=== PATIENT | female | born 1980 | race Caucasian/White ===

== ENCOUNTER 2023-09-23 19:28 | Emergency (ER) | payer BC, SELFPAY ==
[2023-09-23 19:38] VITALS: BP 111/63; PULSE 112; RESP 20; TEMP 37.7; O2SAT 96
[2023-09-24 01:49] VITALS: BP 98/58; PULSE 98; RESP 17; TEMP 37; O2SAT 99
[2023-09-24 01:50] VITALS: O2SAT 98
[2023-09-24 02:34] LABS: Influenza A QL RT-PCR Positive (Negative); Influenza B QL RT-PCR Negative (Negative); RSV RNA, RT-PCR Negative (Negative); SARS-CoV-2 RNA PCR Negative (Negative)
--- NOTE | 2023-09-24 03:02 | ED.URI ---
HPI - URI/Sore Throat General Chief Complaint: Upper Respiratory Infection Stated Complaint: sob, n/v,fever Time Seen by Provider: 09/24/23 02:24 Source: patient Limitations: no limitations History of Present Illness HPI Narrative: Patient is a 43-year-old female presenting to the emergency department complaining of a couple days of congestion, rhinorrhea, fever when she is unsure as to how high she has not been taking temperature in addition to a cough that is nonproductive and some generalized body aches. Patient is unsure she has had any sick contacts. Patient denies chest pain, difficulty breathing, urinary discomfort, diarrhea, vomiting, ear pain. Patient has not tried any medications for symptoms. Related Data Allergies Allergy/AdvReac Type Severity Reaction Status Date / Time latex Allergy Rash Verified 09/23/23 19:46 Review of Systems Review of Systems: A 10 system review of systems was completed on the patient and is negative except for what is stated in the HPI. Nursing and ancillary documentation was reviewed. PMFSH Comments At time of signature, I have reviewed and agree with nursing past medical, surgical, social and family history unless otherwise noted. Please see the nursing chart for further information. There is no relevant family history pertinent to the presenting complaint. Exam Narrative: CONST: No acute distress. Well nourished. HENMT: Head is normocephalic and atraumatic. Moist mucous membranes. No posterior oropharynx erythema. EYES: No conjunctival icterus, injection, or pallor. PERRL. NECK: No meningeal signs. RESP: Able to speak in full sentences. Normal respiratory effort. CTAB. CARDIO: Regular rate. Regular rhythm. 2+ DP and radial pulses bilaterally. GI: Nondistended. No tenderness to palpation. Soft. : No CVA tenderness to palpation. SKIN: No rashes or lesions noted on exposed skin. NEURO: Oriented x3. Moves all extremities. EXTREM: No pedal edema. PSYCH: Normal affect. Course Vital Signs Vital signs: Vital Signs Temperature 99.8 F H 09/23/23 19:38 Pulse Rate 112 H 09/23/23 19:38 Respiratory Rate 20 09/23/23 19:38 Blood Pressure 111/63 09/23/23 19:38 Pulse Oximetry 96 09/23/23 19:38 Oxygen Delivery Room Air 09/23/23 19:38 Temperature 98.7 F 09/24/23 03:15 Pulse Rate 89 09/24/23 03:15 Respiratory Rate 21 H 09/24/23 03:15 Blood Pressure 123/77 09/24/23 03:15 Pulse Oximetry 100 09/24/23 03:15 Oxygen Delivery Room Air 09/24/23 01:50 MDM - URI/Sore Throat MDM Narrative Medical decision making narrative: Patient presents with the above complaint. Examination as noted above. Discussed plan to obtain viral swab. Patient was reassessed at the bedside. No changes in physical exam. Patient is in no acute distress. The patient has remained stable throughout the entire ED visit. Counseled patient regarding diagnostic results, potential diagnosis. Anticipatory guidance provided. Follow up established. Patient counseled on: false reassurance from an emergency department evaluation; no current evidence of a medical emergency; return immediately for any new, recurrent, worsening, concerning, or refractory symptoms. Patient prescribed tamiflu, dextromethorphan-guaifenesin, tylenol. Prescription sent to preferred pharmacy. Medications discussed with patient. Additional verbal and printed discharge instructions were given and discussed with the patient. Patient verbally acknowledges understanding of condition and discharge instructions. All questions were answered to the patient's satisfaction. Patient is in agreement with the plan of care. The patient is stable for discharge and was discharged without incident. Differential Diagnosis Differential diagnosis: Likely upper respiratory infection, viral infection and influenza Medical Records Attestation: I reviewed the patient's medical records. Lab Data Attestation: I reviewed t
[2023-09-24 03:15] VITALS: BP 123/77; PULSE 89; RESP 21; TEMP 37.1; O2SAT 100
== END 2023-09-24 03:16 | disposition home or self-care (01) ==
PROVIDERS: Emergency Provider Student in an Organized Health Care Education/Training Program
DX: J10.1 Influenza due to other identified influenza virus with other respiratory manifestations (principal); Z20.822 Contact with and (suspected) exposure to COVID-19
CPT/HCPCS: 87637; 99283